=== PATIENT | female | born 1950 | race Caucasian/White ===

== ENCOUNTER 2017-08-28 21:04 | Outpatient (CLI) | payer MEDICARE | END 2017-08-28 21:05 | disposition short-term general hospital (02) | LOC: EMS 21:04 | PROVIDERS: ATTEND Surgery | DX: R41.82 Altered mental status, unspecified (principal); R25.9 Unspecified abnormal involuntary movements | CPT/HCPCS: A0425; A0427 ==

== ENCOUNTER 2018-01-11 14:28 | Outpatient (CLI) | payer MEDICARE | END 2018-01-11 14:29 | disposition critical access hospital (66) | LOC: EMS 14:28 | PROVIDERS: ATTEND Surgery | DX: R56.9 Unspecified convulsions (principal) | CPT/HCPCS: A0425; A0427 ==

== ENCOUNTER 2018-01-11 14:42 | Emergency (ER) | payer MEDICARE ==
--- NOTE | 2018-01-11 14:50 | ED Physician Documentation ---
PD HPI SEIZURE - Stated complaint Stated Complaint: SEIZURE - History obtained from History obtained from: EMS - History of Present Illness Timing - onset: Today Witnessed: Witnessed Number of seizures: Multiple, Lasted minutes Description of seizure activity: Generalized, Postictal Injury during seizure: None Pain level max: 0 Pain level now: 0 Associated symptoms: Unknown History of seizures: Known seizure disorder Similar symptoms before: Diagnosis Recently seen: Not recently seen - Additional information Additional information: EMS reported they were called for a witness seizure at pt's workplace around 1352; this lasted 4 minutes per bystander who also has a hx of seizure. Pt has hx of seizure on Keppra per bystander who also stated pt was about to take her 2pm Keppra dose. During transport pt had another seizure around 1424 which lasted 3 minutes. EMS noted pt was gazing on her left when this occurred. Patient was maintaining her airway. In the E.R., initial exam showed pt has right sided neglect, right facial droop and right arm and right leg unable to resist gravity. Pt was transported immediately to the CT scan for stroke p rotocol. Pt's spouse arrived arround 1521 and he informed me pt's first seizure was in November 2015 and he witnessed that pt's right face was asymmetrical. Pt was started on Keppra 500 mg. The second seizure was in July 2017 witnessed by the EMS. Pt's keppra was increased to 1000 mg. Spouse reported pt was worked up with CT head scan and MRI scan which was negative. The EEG showed a spot of the right side of her brain that may be giving her the seizures according to the neurologist as he understood it per spouse. Spouse denied any recent trauma, injury, travel or illness of the patient. Review of Systems Unable to obtain: Unresponsive, Other (post ictal) Ten Systems: 10 systems reviewed and negative (reviewed with spouse) Constitutional: denies: Fever, Chills, Myalgias, Fatigue Eyes: denies: Photophobia Ears: denies: Ear pain Nose: denies: Rhinorrhea / runny nose, Congestion Throat: denies: Sore throat Cardiac: denies: Chest pain / pressure Respiratory: denies: Dyspnea, Cough GI: denies: Abdominal Pain, Vomiting, Diarrhea Skin: denies: Rash Neurologic: denies: Generalized weakness PD PAST MEDICAL HISTORY - Past Medical History Neuro: Migraines, Seizure disorder - Allergies Allergies/Adverse Reactions: Allergies Allergy/AdvReac Type Severity Reaction Status Date / Time Unable to Assess Allergy Verified 01/11/18 14:51 - Living Situation Living Situation: reports: With family Living Arrangement: reports: At home - Social History Does the pt smoke?: No Does the pt drink ETOH?: No Does the pt have substance abuse?: No - Family History Family history: reports: Non contributory PD ED PE NORMAL - Vitals Vital signs reviewed: Yes - General General: No acute distress, Well developed/nourished, Other (post ictal; slowly coming around when pt arrived with EMS) - HEENT HEENT: PERRL, Moist mucous membranes, Pharynx benign - Neck Neck: Supple, no meningeal sign - Cardiac Cardiac: RRR, No murmur - Respiratory Respiratory: No respiratory distress, Clear bilaterally - Abdomen Abdomen: Normal bowel sounds, Soft, Non tender, Non distended - Derm Derm: Normal color, Warm and dry, No rash - Extremities Extremities: No deformity - Neuro Neuro: Other (Pt mute. Followed simple commands like squeezing my fingers and keeping her legs and arms up. Pt is mute. Right facial droop, right arm and right leg unable to resist gravity. Left arm and left leg able to resist gravity.) Results - EKG (time done) 1522 Rate: Rate (enter#) (100) Rhythm: Sinus tachycardia Stacy: Normal Intervals: Normal [place] QRS: Normal Ischemia: Normal ST segments PD MEDICAL DECISION MAKING - ED course Complexity details: re-evaluated patient ([address] scanner and had a seizure lasting less than 1 minute. Pt is maintaining her airway. 1521 Pt's spouse arrived and updated on pt status. He also provided pt's PMH. See HPI. 1618 Pt had a brief seizure activity. Maintaining her airway. Spouse informed she will be transferred to [facility] and agreed. 1715 Pt sleeping with intermittent snoring. Maintaining her airway. 1758 Pt responds to deep pain and spoken to loudly only with moaning. Maintaining her airway. RR. Pulse ox 95% RA. 1800 Flight crew here and gave report. Pt seems to be having intermittent fine decerebrating movements. She's maintaining airway so the flight crew feels comfortable taking her with O2 only. ), considered differential (seizure disorder, Luisito's paralysis, CVA, ICB), d/w client development consultant (1525 Radiologist called me and report CT head scan nothing acute, no bleed. 1535 [facility] neurologist Dr Wakefield - case discussed in details. He's able to read the CT scan. Unable to see the CTA H/N. 1555 Dr Wakefield called me back. He wants to load the pt with Keppra [address] Wakefield updated on pt's status. He stated to give pt Ativan if she has another seizure. He will speak to their civil engineering manager about case. 1614 Dr Wakefield called me back and stated if pt does not have any more seizures pt dose not have to be transferred. [address] Wakefield and informed him pt had another seizure. He said to start pt on Fosphenytoin 20 mg/kg IV. He is accepting pt transfer. 1640 Called our pharmacis ANETA who informed me that the hospital has no fosphenytoin. 1715 charge nurse informed me that the neurologist wants to make sure pt is maintaining her airway. She forgot to mention to the neurologist our hospital has no fosphynetoin.) - Critical Care Time(min): 60 Time Includes: Direct patient care, Reassess patient, Document care, Coordinate care, Medical consult, Family consult for tx dec, See progress note Data interpretation: Labs, Pulse ox, CXR, See progress note Procedures included in critical care time: See progress note (frequent cardiac/airway/neuro monitoring and treatment of seizures) Procedures excluded from critical care time: EKG Departure - Departure Disposition: 02 Transfer Acute Care Hosp Clinical Impression: Complex partial epilepsy with recurrent seizures, Luisito's paralysis (postepileptic) Condition: Fair
[2018-01-11] MEDS ORDERED: IOPAMIDOL-300 100 ML VIAL ONE (14:54)
--- NOTE | 2018-01-11 15:31 | CT Report ---
Reason: RIGHT SIDED WEAKNESS, SEIZURE Procedure Date: 01/11/2018 Accession Number: [id number] / [id number] Procedure: CT - Head W/O CPT Code: FULL RESULT: EXAM: CT HEAD EXAM DATE: 01/11/2018 03:01 PM. CLINICAL HISTORY: RIGHT SIDED WEAKNESS, SEIZURE. COMPARISON: None. TECHNIQUE: Multiaxial CT images were obtained from the foramen magnum to the vertex. Reformats: Coronal. IV contrast: None. In accordance with CT protocol optimization, one or more of the following dose reduction techniques were utilized for this exam: automated exposure control, adjustment of mA and/or KV based on patient size, or use of iterative reconstructive technique. FINDINGS: Parenchyma: No intraparenchymal hemorrhage. No evidence of mass, midline shift, or CT findings of acute infarction. Calvo-white differentiation is distinct. Diffuse chronic microangiopathic white matter changes. Extraaxial Spaces: Normal for age. No subdural or epidural collections. Ventricles: The ventricles and cortical sulci are enlarged, consistent with age-related tissue loss. Sinuses and orbits: Imaged paranasal sinuses, orbits, and mastoids show no significant abnormality. Bones: Unremarkable. Other: None. IMPRESSION: Generalized age-related cortical atrophic changes without evidence of acute intracranial abnormality. [facility] The call report notification system was initiated by Dr. Ridge Becker at 15:27 hrs on 01/11/18. The above findings were discussed with Oneyda Pendleton by Dr. Ridge Becker at 15:30 hrs on 01/11/18.
[2018-01-11] MEDS ORDERED: levETIRAcetam INJ 1,000 MG in SODIUM CHLORIDE 0.9% 100ML 100 ML IV STA (15:40)
[2018-01-11 15:46] LABS: BASOPHILS # (AUTO) 0.1 10^3/uL (0.0-0.1); BASOPHILS % (AUTO) 0.8 %; EOSINOPHILS # (AUTO) 0.1 10^3/uL (0.0-0.7); EOSINOPHILS % (AUTO) 0.7 %; HGB - HEMOGLOBIN 14.1 g/dL (12.0-16.0); LYMPHOCYTES # (AUTO) 1.8 10^3/uL (1.5-3.5); LYMPHOCYTES % (AUTO) 16.6 %; MEAN CORPUSCULAR HEMOGLOBIN 32.4 pg (27.0-31.0); MEAN CORPUSCULAR HGB CONC 32.9 g/dL (32.0-36.0); MEAN CORPUSCULAR VOLUME 98.5 fL (81.0-99.0); MEAN PLATELET VOLUME 7.5 fL (7.9-10.8); MONOCYTES # (AUTO) 0.5 10^3/uL (0.0-1.0); MONOCYTES % (AUTO) 4.4 %; NEUTROPHILS # (AUTO) 8.2 10^3/uL (1.5-6.6); NEUTROPHILS % (AUTO) 77.5 %; PLT - PLATELET COUNT 279 10^3/uL (130-450); RED BLOOD COUNT 4.35 10^6/uL (4.20-5.40); RED CELL DISTRIBUTION WIDTH 13.2 % (12.0-15.0); WHITE BLOOD COUNT 10.6 x10^3/uL (4.8-10.8)
--- NOTE | 2018-01-11 15:54 | CT Report ---
Reason: RIGHT SIDED WEAKNESS, SEIZURE Procedure Date: 01/11/2018 Accession Number: [id number] / [id number] Procedure: CT - Neck Angio CPT Code: FULL RESULT: EXAM: CT ANGIOGRAM HEAD AND NECK. CT SCAN HEAD WITHOUT AND WITH CONTRAST. EXAM DATE:01/11/2018 03:01 PM. CLINICAL HISTORY:RIGHT SIDED WEAKNESS, SEIZURE. COMPARISON:Accompanying unenhanced CT study head. TECHNIQUE: Routine axial helical CTA imaging was performed from the aortic arch through the [place] of [place]. Routine axial CT imaging of the head was performed prior to and following contrast administration. Reconstructions: Routine multiplanar 3D MIP reconstructions. IV contrast: 80 cc Isovue-300. NASCET Criteria are used for stenosis measurements. In accordance with CT protocol optimization, one or more of the following dose reduction techniques were utilized for this exam: automated exposure control, adjustment of mA and/or KV based on patient size, or use of iterative reconstructive technique. Findings: Relevant images are indicated (image number, series number). Postcontrast CT head: No abnormal enhancement of the brain, meninges. CT angiogram head: Left ICA: Patent including MCA, JAROD Right ICA: Patent including MCA, JAROD. Posterior circulation: Patent distal bilateral vertebral arteries, basilar artery patent bilateral TIMBER FELLER distribution. Prominent left, right PCOM. Patent major draining veins. CT angiogram neck: Aortic arch: Patent, mild atherosclerotic disease. Left carotid artery: Minimal atherosclerotic disease, otherwise patent. Right carotid artery: Widely patent. Left vertebral artery: Widely patent. Right vertebral artery: Patent with vessel tortuosity. Limited evaluation lung apices demonstrate scattered dense emphysematous change. Soft tissue neck nonenlarged thyroid, airway patent. Straightening, reversal of the normal cervical lordotic curve with advanced focal cervical spondylosis present C5-C6, C6-C7 levels. No suspicious bony lesions. Impressions: Postcontrast CT head: 1. Negative. CT angiogram head: 1. Patent major arteries of the brain, with normal anatomical variability as described. No aneurysm, dissection, stenosis, AVM. 2. Patent major veins. CT angiogram neck: 1. Patent bilateral carotid, vertebral arteries, aortic arch. Minimal/mild atherosclerotic disease, no stenosis. No aneurysm, dissection, or AVM. 2. Soft tissue neck negative. 3. Advanced multilevel cervical spondylosis. 4. Dense emphysematous change bilateral upper lungs. [facility]
--- NOTE | 2018-01-11 15:54 | CT Report ---
Reason: RIGHT SIDED WEAKNESS, SEIZURE Procedure Date: 01/11/2018 Accession Number: [id number] / [id number] Procedure: CT - Head Angio CPT Code: FULL RESULT: EXAM: CT ANGIOGRAM HEAD AND NECK. CT SCAN HEAD WITHOUT AND WITH CONTRAST. EXAM DATE:01/11/2018 03:01 PM. CLINICAL HISTORY:RIGHT SIDED WEAKNESS, SEIZURE. COMPARISON:Accompanying unenhanced CT study head. TECHNIQUE: Routine axial helical CTA imaging was performed from the aortic arch through the [place] of [place]. Routine axial CT imaging of the head was performed prior to and following contrast administration. Reconstructions: Routine multiplanar 3D MIP reconstructions. IV contrast: 80 cc Isovue-300. NASCET Criteria are used for stenosis measurements. In accordance with CT protocol optimization, one or more of the following dose reduction techniques were utilized for this exam: automated exposure control, adjustment of mA and/or KV based on patient size, or use of iterative reconstructive technique. Findings: Relevant images are indicated (image number, series number). Postcontrast CT head: No abnormal enhancement of the brain, meninges. CT angiogram head: Left ICA: Patent including MCA, JAROD Right ICA: Patent including MCA, JAROD. Posterior circulation: Patent distal bilateral vertebral arteries, basilar artery patent bilateral SURVEILLANCE SENSOR OPERATOR distribution. Prominent left, right PCOM. Patent major draining veins. CT angiogram neck: Aortic arch: Patent, mild atherosclerotic disease. Left carotid artery: Minimal atherosclerotic disease, otherwise patent. Right carotid artery: Widely patent. Left vertebral artery: Widely patent. Right vertebral artery: Patent with vessel tortuosity. Limited evaluation lung apices demonstrate scattered dense emphysematous change. Soft tissue neck nonenlarged thyroid, airway patent. Straightening, reversal of the normal cervical lordotic curve with advanced focal cervical spondylosis present C5-C6, C6-C7 levels. No suspicious bony lesions. Impressions: Postcontrast CT head: 1. Negative. CT angiogram head: 1. Patent major arteries of the brain, with normal anatomical variability as described. No aneurysm, dissection, stenosis, AVM. 2. Patent major veins. CT angiogram neck: 1. Patent bilateral carotid, vertebral arteries, aortic arch. Minimal/mild atherosclerotic disease, no stenosis. No aneurysm, dissection, or AVM. 2. Soft tissue neck negative. 3. Advanced multilevel cervical spondylosis. 4. Dense emphysematous change bilateral upper lungs. [facility]
[2018-01-11 15:58] LABS: ALBUMIN 4.4 g/dL (3.2-5.5); ALBUMIN/GLOBULIN RATIO 1.4 (1.0-2.2); BILIRUBIN,TOTAL 0.6 mg/dL (0.2-1.0); CALCIUM 8.8 mg/dL (8.5-10.3); CREATININE 0.9 mg/dL (0.4-1.0); TOTAL PROTEIN 7.5 g/dL (6.7-8.2)
[2018-01-11 16:06] LABS: MUDS CUTOFF CONCENTRATIONS CUTOFF CONC BELOW:
[2018-01-11 16:12] LABS: BILIRUBIN,URINE NEGATIVE (NEGATIVE); GLUCOSE, URINE (UA) 100 mg/dL (NEGATIVE); KETONES,URINE (UA) TRACE mg/dL (NEGATIVE); LEUKOCYTE ESTERASE, URINE NEGATIVE (NEGATIVE); NITRITE,URINE NEGATIVE (NEGATIVE); OCCULT BLOOD,URINE TRACE-INTA (NEGATIVE); PROTEIN,URINE 30 mg/dL (NEGATIVE); UROBILINOGEN,URINE 0.2 (NORMAL) E.U./dL (NORMAL)
[2018-01-11] MEDS ORDERED: LORazepam 2 MG/ML VIAL ONE (16:20)
[2018-01-11 16:22] LABS: CLARITY,URINE CLEAR (CLEAR)
[2018-01-11 16:24] LABS: AMPHETAMINE SCREEN,URINE NEGATIVE (NEGATIVE); BENZODIAZEPINES SCREEN, URINE NEGATIVE (NEGATIVE); COCAINE SCREEN URINE NEGATIVE (NEGATIVE); METHADONE SCREEN, URINE NEGATIVE (NEGATIVE); METHAMPHETAMINES SCREEN, URINE NEGATIVE (NEGATIVE); OPIATE SCREEN, URINE NEGATIVE (NEGATIVE); OXYCODONE SCREEN, URINE NEGATIVE (NEGATIVE); PROPOXYPHENE SCREEN, URINE NEGATIVE (NEGATIVE); TRICYCLIC ANTIDEPRESSANT,URINE NEGATIVE (NEGATIVE)
[2018-01-11] MEDS ORDERED: LORazepam 2 MG/ML VIAL IVP STA (16:27)
[2018-01-11 16:35] LABS: BACTERIA,URINE None Seen /HPF (None Seen); RBC,URINE 0-5 /HPF (0-5); SQUAMOUS EPITHELIAL CELL,UR FEW Squamous (<= Few)
[2018-01-11 16:37] LABS: AMORPHOUS SEDIMENT,UR Few /LPF
--- NOTE | 2018-01-11 16:39 | XRAY Report ---
Reason: chest pain Procedure Date: 01/11/2018 Accession Number: [id number] / [id number] Procedure: XR - Chest 1 View X-Ray CPT Code: 84595 FULL RESULT: EXAM: CHEST RADIOGRAPHY EXAM DATE: 01/11/2018 04:26 PM. CLINICAL HISTORY: Chest pain. COMPARISON: None. TECHNIQUE: 1 view. FINDINGS: Lungs/Pleura: No consolidative process demonstrated. Mediastinum: Heart size is normal. There is very mild aortic arch atherosclerotic calcification. Trachea is midline. Other: None. IMPRESSION: Negative for an acute cardiopulmonary process. [facility]
[2018-01-11] MEDS ORDERED: IOPAMIDOL-300 100 ML VIAL IVP ONE ×2 (17:46)
[2018-01-11 19:39] VITALS: BP 126/72
== END 2018-01-11 18:21 | disposition short-term general hospital (02) ==
LOC: EDUNIT# → ED 14:42
DX: G40.209 Localization-related (focal) (partial) symptomatic epilepsy and epileptic syndromes with complex partial seizures, not intractable, without status epilepticus (principal); G83.84 Todd's paralysis (postepileptic); R00.0 Tachycardia, unspecified
CPT/HCPCS: 36415; 51702; 70450; 70496; 70498; 71045; 80053; 80177; 81001; 83690; 84484; 85025; 85610; 85730; 93005; 96365; 96375; 99285; 99291; J2060; Q9967; 80306; 81003; 87086

== ENCOUNTER 2020-07-17 12:59 | Outpatient (CLI) | payer MEDICARE | END 2020-07-17 13:00 | disposition short-term general hospital (02) | LOC: EMS 12:59 | DX: R56.9 Unspecified convulsions (principal) | CPT/HCPCS: A0425; A0427 ==

== ENCOUNTER 2023-06-14 19:08 | Outpatient (CLI) | payer MEDICARE | END 2023-06-14 23:59 | disposition short-term general hospital (02) | LOC: EMS 19:08 | DX: R56.9 Unspecified convulsions (principal) | CPT/HCPCS: A0425; A0427 ==